=== PATIENT | female | born 1990 | race African-American/Black ===

== ENCOUNTER 2022-11-06 09:19 | Emergency (ER) | payer SELFPAY ==
[~2022-11-06] VITALS: Ht 157.5 cm; Wt 103.9 kg
[2022-11-06] MEDS ORDERED: THERAFLU FLU &1 EAC1 PO (09:54)
[2022-11-06] MEDS ORDERED: AZITHROMYCIN250 MG PO (09:54)
[2022-11-06] MEDS ORDERED: IBUPROFEN200 MG PO (09:54)
== END 2022-11-06 10:11 | disposition home or self-care (01) ==
LOC: FSED 09:23
DX: R50.9 Fever, unspecified (principal); J02.0 Streptococcal pharyngitis; R05.9 Cough, unspecified; R09.89 Other specified symptoms and signs involving the circulatory and respiratory systems
CPT/HCPCS: 83518; 87400; 99283